=== PATIENT | male | born 1945 | race Caucasian/White ===

== ENCOUNTER 2017-01-21 05:29 | Inpatient (IN) | payer OTHER, BC ==
[2017-01-06 08:31] LABS: HEMATOCRIT 44.8 % (42.0-52.0); HEMOGLOBIN 15.5 gm/dL (14.0-18.0); MCH 32.1 pg (26.0-34.0); MCHC 34.7 g/dL (28.0-37.0); MCV 92.5 fL (80.0-100.0); RBC 4.84 mil/uL (4.50-6.00); RDW 13.6 % (10.5-14.5); WBC 6.5 thou/uL (4.0-11.0)
[2017-01-06 08:32] LABS: URINE BILIRUBIN NEGATIVE (Negative); URINE BLOOD NEGATIVE (Negative); URINE COLOR YELLOW; URINE GLUCOSE-RANDOM* NEGATIVE (Negative); URINE KETONES NEGATIVE (Negative); URINE LEUKOCYTES-REFLEX NEGATIVE (Negative); URINE PROTEIN (DIPSTICK) TRACE (Negative); URINE SPECIFIC GRAVITY >= 1.030 (1.003-1.035); URINE UROBILINOGEN 0.2 E.U./dl (0.2-1.0)
[2017-01-06 08:42] LABS: INR 1.2; PROTIME 12.2 Seconds (9.3-11.4)
[2017-01-06 08:50] LABS: ALBUMIN 4.2 g/dL (3.4-5.0); CALCIUM 9.4 mg/dL (8.5-10.1); CREATININE 1.3 mg/dL (0.7-1.3)
[~2017-01-21] VITALS: Ht 182.9 cm; Wt 113.4 kg
--- NOTE | ~2017-01-21 | EKG ---
[address] [address] ELECTROCARDIOGRAM REPORT Name: NATALIE BARKSDALE Room #: PRE IN [facility]#: [id number] Admission: Attend Phys: Tima Eden MD Discharge: Date of : 47 Report #: [id number] THIS REPORT FOR: //name// [facility] Test Date: 2017-01-06 Test Time: 08:21:13 Pat Name: NATALIE BARKSDALE Department: Room: Gender: M Physical Therapist: VALENTIN AGUILAR : 1945 Requested By: Tima Eden Order Number: [id number] MD: Sami Coronado Measurements Intervals [place] Rate: 55 P: 20 NC: 219 QRS: -33 QRSD: 112 T: -54 QT: 451 QTc: 432 Interpretive Statements Sinus rhythm Borderline prolonged NC interval Borderline IVCD with LAD Borderline repolarization abnormality Compared to ECG 11/13/2015 09:14:46 Sinus bradycardia no longer present Electronically Signed On 01-06-2017 17:58:09 CDT by Sami Coronado [email or web address] <ELECTRONICALLY SIGNED> By: Sami Coronado MD 01/06/17 1758 0 0 Sami Coronado MD /EPI
[~2017-01-21 05:29] MED LIST: ACCUPRIL40 MG PO; ALEVE220 MG PO; ASPIR 8181 MG PO; ATENOLOL 100MG100 MG PO; BAYER CHEWABLE81 MG PO; CENTRUM SILVER1 EAC2 PO; CO Q-10100 MG PO; FLOMAX0.4 MG PO; HYDROCHLOROTH12.5 M1 PO; HYDROCHLOROTHIA25 M2 PO; HYDROCODONE-APA1 TA1 PO; IBUPROFEN200 M1 PO; LIPITOR 20 MG T20 M1 PO; LIPITOR10 MG PO; TENORMIN50 MG PO; TRICOR145 MG PO; VITAMIN D1000 UNI1 PO
[2017-01-21 07:15] VITALS: BP 134/75
[2017-01-21 12:51] VITALS: BP 135/52
[2017-01-21 15:51] VITALS: BP 144/65
[2017-01-21 20:55] VITALS: BP 132/69
[2017-01-22 00:05] VITALS: BP 130/68
[2017-01-22 04:00] VITALS: BP 144/73
[2017-01-22 06:12] LABS: HEMATOCRIT 36.5 % (42.0-52.0); HEMOGLOBIN 12.8 gm/dL (14.0-18.0); MCH 31.9 pg (26.0-34.0); MCHC 34.9 g/dL (28.0-37.0); MCV 91.4 fL (80.0-100.0); PLATELET COUNT 213 thou/uL (150-400); RBC 3.99 mil/uL (4.50-6.00); RDW 13.2 % (10.5-14.5)
[2017-01-22 06:18] LABS: MANUAL DIFF YES
[2017-01-22 06:22] LABS: CALCIUM 9.1 mg/dL (8.5-10.1); CREATININE 1.2 mg/dL (0.7-1.3); MAGNESIUM 1.8 mg/dL (1.8-2.4); POTASSIUM 3.4 mmol/L (3.5-5.1)
[2017-01-22 07:35] VITALS: BP 148/83
[2017-01-22 08:39] LABS: ABSOLUTE NEUTROPHILS 9.4 thou/uL (1.4-8.2); TOTAL CELL COUNT 100
[2017-01-22 15:16] VITALS: BP 158/61
[2017-01-22 19:15] VITALS: BP 166/70
[2017-01-23 04:54] VITALS: BP 153/92
[2017-01-23 05:45] LABS: HEMATOCRIT 37.3 % (42.0-52.0); HEMOGLOBIN 12.7 gm/dL (14.0-18.0); MCHC 34.1 g/dL (28.0-37.0); MCV 93.7 fL (80.0-100.0); RBC 3.98 mil/uL (4.50-6.00); RDW 13.1 % (10.5-14.5); WBC 10.3 thou/uL (4.0-11.0)
[2017-01-23 07:30] VITALS: BP 161/84
[2017-01-23 19:19] VITALS: BP 187/80
[2017-01-23 21:40] VITALS: BP 190/82
[2017-01-24 00:08] VITALS: BP 174/78
[2017-01-24 03:08] VITALS: BP 148/78
[2017-01-24 04:22] LABS: HEMATOCRIT 33.6 % (42.0-52.0); HEMOGLOBIN 11.9 gm/dL (14.0-18.0); MCH 32.7 pg (26.0-34.0); MCHC 35.5 g/dL (28.0-37.0); MCV 92.1 fL (80.0-100.0); RBC 3.65 mil/uL (4.50-6.00); RDW 12.9 % (10.5-14.5); WBC 9.1 thou/uL (4.0-11.0)
[2017-01-24] MEDS ORDERED: HYDROCODONE-APA1 TA1 PO (06:52)
[2017-01-24] MEDS ORDERED: XARELTO10 MG PO (06:52)
[2017-01-24 08:39] VITALS: BP 153/85
== END 2017-01-24 12:12 | disposition home health service (06) | DRG 470 ==
LOC: TBA 05:29 → 5S 05:29
PROVIDERS: Nurse Practitioner; Orthopaedic Surgery
PROC: 0SRD0JZ Replacement of Left Knee Joint with Synthetic Substitute, Open Approach (ICD-10-PCS; principal; 2017-01-21)
DX: M17.12 Unilateral primary osteoarthritis, left knee (principal); I10 Essential (primary) hypertension; E78.5 Hyperlipidemia, unspecified; D72.829 Elevated white blood cell count, unspecified; D64.9 Anemia, unspecified; E78.00 Pure hypercholesterolemia, unspecified; Z96.651 Presence of right artificial knee joint; Z90.49 Acquired absence of other specified parts of digestive tract; Z86.010 Personal history of colon polyps; Z87.442 Personal history of urinary calculi; Z79.82 Long term (current) use of aspirin; Z79.899 Other long term (current) drug therapy
CPT/HCPCS: 10785; 50010; 50101; 50415; 50915; 50954; 51130; 51225; 51320; 51412; 51771; 52001; 52282; 53000; 53078; 53364; 56525; 56527; 62110; 62900; 64042; 64043; 70005